=== PATIENT | male | born 1955 | race Caucasian/White ===

== ENCOUNTER 2018-03-26 07:47 | Inpatient (IN) | payer OTHER ==
[2018-03-19 13:40] VITALS: BP 105/71
[~2018-03-26] VITALS: Ht 165.1 cm; Wt 77.9 kg
[~2018-03-26 07:47] MED LIST: BUPIVACAINE/PF 0.5% ONE; BUPIVACAINE/PF-EPI 0.25% 1:200K ONE; CETI10TA24 PO; INDOCYANINE GREEN 25 MG VIAL ONE; LISI-170 PO; SIMV20TA3 PO; SULF1TAB24 PO; TAMS0.4C2 PO
[2018-03-26] MEDS ORDERED: LACTATED RINGERS 1,000 ML IV SCH (08:16)
[2018-03-26] MEDS ORDERED: ACETAMINOPHEN 500 MG TABLET PO ONE (08:30)
[2018-03-26] MEDS ORDERED: METOCLOPRAMIDE 10MG TABLET PO ONE (08:30)
[2018-03-26] MEDS ORDERED: LIDOCAINE-MPF 1%, 2ML INFIL ONE (08:30)
[2018-03-26] MEDS ORDERED: FAMOTIDINE 20 MG TABLET PO ONE (08:30)
[2018-03-26] MEDS ORDERED: GABAPENTIN 300 MG CAPSULE PO ONE (08:30)
[2018-03-26] MEDS ORDERED: NEOMYCIN PO (08:32)
[2018-03-26] MEDS ORDERED: METRONIDAZOLE PO (08:32)
[2018-03-26] MEDS ORDERED: SCOPOLAMINE PATCH, 1.5MG PATCH.TD72 TD ONE ×2 (08:51→09:00)
[2018-03-26 09:23] LABS: ALANINE AMINOTRANSFERASE 76 U/L (12-78); ANION GAP 6 mmol/L (5-15); CALCIUM 8.9 mg/dL (8.5-10.1); CHLORIDE 104 mmol/L (98-107); CREATININE 0.96 mg/dL (0.7-1.3)
[2018-03-26 09:26] LABS: ALKALINE PHOSPHATASE 107 U/L (45-117); BILIRUBIN,TOTAL 0.3 mg/dL (0.2-1.0); TOTAL PROTEIN 7.7 g/dL (6.4-8.2)
[2018-03-26] MEDS ORDERED: FENTANYL PF 100 MCG/2ML ONE (09:35)
[2018-03-26] MEDS ORDERED: MIDAZOLAM 1 MG/ML, 2ML ONE (09:36)
[2018-03-26] MEDS ORDERED: GLYCOPYRROLATE 0.2MG/1ML, 5ML ONE (10:38)
[2018-03-26] MEDS ORDERED: CEFOTETAN 2 GM ONE (10:38)
[2018-03-26] MEDS ORDERED: DEXAMETHASONE 4 MG/ML, 1ML ONE (10:38)
[2018-03-26] MEDS ORDERED: NEOSTIGMINE 1 MG/ML, 10ML ONE (10:38)
[2018-03-26] MEDS ORDERED: SUCCINYLCHOLINE 20 MG/ML, 10ML ONE (10:38)
[2018-03-26] MEDS ORDERED: ONDANSETRON 2MG/ML, 2ML ONE (10:38)
[2018-03-26] MEDS ORDERED: PHENYLEPHRINE 10 MG/ML ONE (10:38)
[2018-03-26] MEDS ORDERED: ROCURONIUM 10 MG/ML,10ML ONE (10:38)
[2018-03-26] MEDS ORDERED: PROPOFOL 10 MG/ML, 20ML ONE (10:38)
[2018-03-26] MEDS ORDERED: MEPERIDINE/PF 25MG/0.5ML IVPush PRN (11:30)
[2018-03-26] MEDS ORDERED: ALBUTEROL SULFATE 2.5 MG/3 ML NPPB PRN (11:30)
[2018-03-26] MEDS ORDERED: FENTANYL PF 100 MCG/2ML IV PRN (11:30)
[2018-03-26] MEDS ORDERED: OXYcodone 5 MG/5 ML ORAL.SOL UDC PO PRN (11:30)
[2018-03-26] MEDS ORDERED: PROMETHAZINE 25 MG/ML, 1ML IV PRN (11:30)
[2018-03-26] MEDS ORDERED: HYDROmorphone 1 MG/ML, 1ML IV PRN (11:30)
[2018-03-26] MEDS ORDERED: OXYcodone 5 MG/5 ML ORAL.SOL UDC ONE (12:53)
[2018-03-26] MEDS ORDERED: SCOPOLAMINE PATCH, 1.5MG PATCH.TD72 TD PRN (14:00)
[2018-03-26] MEDS ORDERED: HYDROmorphone 1 MG/ML, 1ML IVPush PRN (14:00)
[2018-03-26] MEDS ORDERED: DIPHENHYDRAMINE 50 MG/ML, 1ML IVPush PRN (14:00)
[2018-03-26] MEDS ORDERED: ONDANSETRON 2MG/ML, 2ML IV PRN (14:00)
[2018-03-26] MEDS ORDERED: LORazepam 2 MG/ML, 1ML IVPush PRN (14:00)
[2018-03-26] MEDS ORDERED: CALCIUM CARBONATE 500 MG TAB.CHEW PO PRN (14:00)
[2018-03-26] MEDS ORDERED: OXYcodone IR 5MG TABLET PO PRN (14:00)
[2018-03-26] MEDS ORDERED: TRAZODONE 50MG TABLET PO PRN (14:00)
[2018-03-26] MEDS ORDERED: ACETAMINOPHEN 100 ML IVPB PRN (14:00)
[2018-03-26] MEDS ORDERED: DIPHENHYDRAMINE 25 MG CAPSULE PO PRN (14:00)
[2018-03-26] MEDS ORDERED: DEXAMETHASONE 4 MG/ML, 1ML IVPush PRN (14:00)
[2018-03-26] MEDS ORDERED: LORazepam 1MG TABLET PO PRN (14:00)
[2018-03-26] MEDS ORDERED: D5%-0.45NACL+KCL 20MEQ 1,000 ML IV SCH (14:00)
[2018-03-26 14:15] VITALS: BP 102/57
[2018-03-26] MEDS: D5%-0.45NACL+KCL 20MEQ 1,000 ML IV SCH (14:48)
[2018-03-26] MEDS: ACETAMINOPHEN 500 MG TABLET PO SCH ×2 (16:13→22:10)
[2018-03-26] MEDS: IBUPROFEN 800 MG TABLET PO SCH ×2 (16:13→20:37)
[2018-03-26 20:00] VITALS: BP 104/66
[2018-03-26] MEDS: SULFAMETH./TRIMETHOPRIM DS 800MG/160MG TABLET PO SCH (20:37)
[2018-03-26] MEDS: SIMVASTATIN 20 MG TABLET PO SCH (20:38)
[2018-03-27 00:35] VITALS: BP 100/57
[2018-03-27 03:42] LABS: BASOPHILS # (AUTO) 0.03 x10^3/uL (0-0.1); BASOPHILS % (AUTO) 0 % (0-1); EOSINOPHILS % (AUTO) 0 % (1-7); LYMPHOCYTES # (AUTO) 1.39 x10^3/uL (1-3.4); LYMPHOCYTES % (AUTO) 11 % (22-44); MD NO; MEAN CORPUSCULAR HEMOGLOBIN 31.5 pg (27.5-34.5); MEAN CORPUSCULAR HGB CONC 34.4 g/dL (33.2-36.2); MEAN CORPUSCULAR VOLUME 91.7 fL (81-97); MEAN PLATELET VOLUME 7.5 fL (7.4-10.4); MONOCYTES # (AUTO) 1.02 x10^3/uL (0.2-0.8); MONOCYTES % (AUTO) 8 % (2-9); NEUTROPHILS # (AUTO) 9.86 x10^3/uL (1.8-6.8); NEUTROPHILS % (AUTO) 80 % (42-75); PLATELET COUNT 282 x10^3/uL (130-400); RED BLOOD COUNT 3.94 x10^6/uL (4.38-5.82); RED CELL DISTRIBUTION WIDTH 13.1 % (9.4-14.8)
[2018-03-27 03:43] LABS: ANION GAP 8 mmol/L (5-15); CALCIUM 8.5 mg/dL (8.5-10.1); CHLORIDE 105 mmol/L (98-107); CREATININE 1.23 mg/dL (0.7-1.3)
[2018-03-27 04:00] VITALS: BP 91/52
[2018-03-27] MEDS: ACETAMINOPHEN 500 MG TABLET PO SCH ×4 (04:06→22:50)
[2018-03-27] MEDS: D5%-0.45NACL+KCL 20MEQ 1,000 ML IV SCH ×2 (05:18→19:36)
[2018-03-27 07:56] VITALS: BP 94/55
[2018-03-27] MEDS: IBUPROFEN 800 MG TABLET PO SCH ×3 (08:37→21:21)
[2018-03-27] MEDS: SULFAMETH./TRIMETHOPRIM DS 800MG/160MG TABLET PO SCH ×2 (08:37→21:21)
[2018-03-27] MEDS: CETIRIZINE 10 MG TABLET PO SCH (08:37)
[2018-03-27] MEDS: TAMSULOSIN 0.4 MG CAP.ER.24H PO SCH (08:37)
[2018-03-27] MEDS: ENOXAPARIN 40 MG/0.4 ML SQ SCH (11:03)
[2018-03-27 13:41] VITALS: BP 100/63
[2018-03-27] MEDS ORDERED: D5%-0.45NACL+KCL 20MEQ 1,000 ML IV SCH (14:00)
[2018-03-27 19:56] VITALS: BP 104/64
[2018-03-27] MEDS: SIMVASTATIN 20 MG TABLET PO SCH (21:21)
[2018-03-28 02:27] VITALS: BP 114/71
[2018-03-28] MEDS: ACETAMINOPHEN 500 MG TABLET PO SCH ×2 (04:48→10:24)
[2018-03-28 05:32] LABS: BASOPHILS # (AUTO) 0.03 x10^3/uL (0-0.1); BASOPHILS % (AUTO) 0 % (0-1); EOSINOPHILS # (AUTO) 0.11 x10^3/uL (0-0.4); EOSINOPHILS % (AUTO) 2 % (1-7); LYMPHOCYTES # (AUTO) 1.67 x10^3/uL (1-3.4); LYMPHOCYTES % (AUTO) 23 % (22-44); MD NO; MEAN CORPUSCULAR HEMOGLOBIN 30.8 pg (27.5-34.5); MEAN CORPUSCULAR HGB CONC 33.9 g/dL (33.2-36.2); MEAN CORPUSCULAR VOLUME 90.8 fL (81-97); MEAN PLATELET VOLUME 7.6 fL (7.4-10.4); MONOCYTES # (AUTO) 0.65 x10^3/uL (0.2-0.8); MONOCYTES % (AUTO) 9 % (2-9); NEUTROPHILS % (AUTO) 66 % (42-75); PLATELET COUNT 229 x10^3/uL (130-400); RED BLOOD COUNT 3.78 x10^6/uL (4.38-5.82); RED CELL DISTRIBUTION WIDTH 13.8 % (9.4-14.8)
[2018-03-28 05:37] LABS: ANION GAP 9 mmol/L (5-15); CALCIUM 8.7 mg/dL (8.5-10.1); CHLORIDE 109 mmol/L (98-107); CREATININE 1.16 mg/dL (0.7-1.3)
[2018-03-28 07:06] VITALS: BP 108/68
[2018-03-28] MEDS: D5%-0.45NACL+KCL 20MEQ 1,000 ML IV SCH (07:34)
[2018-03-28] MEDS: TAMSULOSIN 0.4 MG CAP.ER.24H PO SCH (08:15)
[2018-03-28] MEDS: SULFAMETH./TRIMETHOPRIM DS 800MG/160MG TABLET PO SCH (08:16)
[2018-03-28] MEDS: CETIRIZINE 10 MG TABLET PO SCH (08:16)
[2018-03-28] MEDS: IBUPROFEN 800 MG TABLET PO SCH (08:16)
[2018-03-28] MEDS: ENOXAPARIN 40 MG/0.4 ML SQ SCH (10:24)
[2018-03-28 10:39] VITALS: BP 113/71
[2018-03-28] MEDS ORDERED: ENOX40SY4 SQ (10:40)
[2018-03-28] MEDS ORDERED: OXYC-302 PO (10:40)
== END 2018-03-28 11:18 | disposition home or self-care (01) | DRG 376 ==
LOC: ORIP 07:47 → 4NOR 13:30 → DCLOUNGE 03-28 10:58
PROVIDERS: ADMIT Surgery; ATTEND Surgery
PROC: 8E0W4CZ Robotic Assisted Procedure of Trunk Region, Percutaneous Endoscopic Approach (ICD-10-PCS; 2018-03-26)
PROC: 0DBN4ZX Excision of Sigmoid Colon, Percutaneous Endoscopic Approach, Diagnostic (ICD-10-PCS; principal; 2018-03-26 11:00)
DX: C18.7 Malignant neoplasm of sigmoid colon (principal); E78.00 Pure hypercholesterolemia, unspecified; I10 Essential (primary) hypertension; Z90.49 Acquired absence of other specified parts of digestive tract; Z80.42 Family history of malignant neoplasm of prostate; Z80.3 Family history of malignant neoplasm of breast; Z83.2 Family history of diseases of the blood and blood-forming organs and certain disorders involving the immune mechanism
CPT/HCPCS: 36415; J3490; S0074; 80048; 80053; 85025; 86850; 86900; 88309; 93005; J1100; J1650; J2250; J2405; J2704; J2710; J3010; J0330; J2370; J3480; J7120

== ENCOUNTER 2018-04-17 05:59 | Day surgery (SDC) | payer OTHER ==
[~2018-04-17] VITALS: Ht 162.6 cm; Wt 72.0 kg
[~2018-04-17 05:59] MED LIST changes: -BUPIVACAINE/PF 0.5% ONE; -BUPIVACAINE/PF-EPI 0.25% 1:200K ONE; +ENOX40SY4 SQ; -INDOCYANINE GREEN 25 MG VIAL ONE; +METRONIDAZOLE PO; +NEOMYCIN PO; +OXYC-302 PO
[2018-04-17] MEDS ORDERED: BUPIVACAINE/PF-EPI 0.5% 1:200K ONE (06:11)
[2018-04-17] MEDS ORDERED: PROTAMINE SULFATE 10 MG/ML, 5ML ONE (06:11)
[2018-04-17] MEDS ORDERED: HEPARIN 1,000 UNITS/ML, 10ML ONE (06:11)
[2018-04-17 06:22] VITALS: BP 128/82
[2018-04-17] MEDS ORDERED: EPHEDRINE 50 MG/ML, 1ML ONE (06:36)
[2018-04-17] MEDS ORDERED: SODIUM CHLORIDE 0.9% PF 10ML ONE (06:37)
[2018-04-17] MEDS ORDERED: LIDOCAINE-MPF 2% ,5ML ONE (06:37)
[2018-04-17] MEDS ORDERED: PROPOFOL 10 MG/ML, 20ML ONE (06:37)
[2018-04-17] MEDS ORDERED: PHENYLEPHRINE 10 MG/ML ONE (06:37)
[2018-04-17] MEDS ORDERED: NEOSTIGMINE 1 MG/ML, 10ML ONE (06:37)
[2018-04-17] MEDS ORDERED: LIDOCAINE JELLY 2%, 30GM ONE (06:38)
[2018-04-17] MEDS ORDERED: LACTATED RINGERS 1,000 ML IV SCH (06:40)
[2018-04-17] MEDS ORDERED: METOCLOPRAMIDE 5 MG/ML, 2ML ONE (07:06)
[2018-04-17] MEDS ORDERED: DEXAMETHASONE 4 MG/ML, 1ML ONE (07:06)
[2018-04-17] MEDS ORDERED: FENTANYL PF 100 MCG/2ML ONE (07:06)
[2018-04-17] MEDS ORDERED: MIDAZOLAM 1 MG/ML, 2ML ONE (07:06)
[2018-04-17] MEDS ORDERED: ONDANSETRON 2MG/ML, 2ML ONE ×2 (07:06)
[2018-04-17] MEDS ORDERED: BUPIVACAINE/PF-EPI 0.5% 1:200K INFIL ONE (07:31)
[2018-04-17] MEDS ORDERED: OXYcodone 5 MG/5 ML ORAL.SOL UDC ONE (07:56)
[2018-04-17] MEDS ORDERED: OXYcodone 5 MG/5 ML ORAL.SOL UDC PO PRN (08:00)
[2018-04-17] MEDS ORDERED: MIDAZOLAM 1 MG/ML, 2ML IV PRN (08:00)
[2018-04-17] MEDS ORDERED: HYDROmorphone 2 MG/ML, 1ML IV PRN (08:00)
[2018-04-17] MEDS ORDERED: MEPERIDINE/PF 25MG/0.5ML IVPush PRN (08:00)
[2018-04-17] MEDS ORDERED: FENTANYL PF 100 MCG/2ML IV PRN (08:00)
[2018-04-17] MEDS ORDERED: ONDANSETRON 2MG/ML, 2ML IVPush PRN (08:00)
[2018-04-17] MEDS ORDERED: LABETALOL 5MG/ML, 20ML IV PRN (08:00)
== END 2018-04-17 09:10 | disposition home or self-care (01) ==
LOC: OUT 05:59
PROVIDERS: ATTEND Colon & Rectal Surgery
DX: Z45.2 Encounter for adjustment and management of vascular access device (principal); C18.9 Malignant neoplasm of colon, unspecified; I87.2 Venous insufficiency (chronic) (peripheral); I10 Essential (primary) hypertension; Z98.890 Other specified postprocedural states
CPT/HCPCS: 36561; 77001; C1788; J1100; J1644; J2250; J2370; J2405; J2704; J2765; J3010; J3490; J7120; J2710; J2720

== ENCOUNTER → 2018-05-07 | Outpatient (CLI) | payer OTHER | END | disposition home or self-care (01) | LOC: RAD 13:29 | PROVIDERS: ATTEND Internal Medicine Hematology & Oncology | DX: C18.7 Malignant neoplasm of sigmoid colon (principal) | CPT/HCPCS: 36598; 76000; J1642 ==

== ENCOUNTER → 2018-08-20 | Outpatient (CLI) | payer OTHER | END | disposition home or self-care (01) | LOC: RAD 12:17 | PROVIDERS: ATTEND Colon & Rectal Surgery | DX: R07.9 Chest pain, unspecified (principal); Z95.828 Presence of other vascular implants and grafts | CPT/HCPCS: 71046 ==

== ENCOUNTER 2018-08-22 06:53 | Day surgery (SDC) | payer OTHER ==
[~2018-08-22] VITALS: Ht 165.1 cm; Wt 74.6 kg
[~2018-08-22 06:53] MED LIST changes: +BUPIVACAINE/PF-EPI 0.5% 1:200K ONE; +HEPARIN 1,000 UNITS/ML, 10ML ONE
[2018-08-22 07:18] VITALS: BP 128/77
[2018-08-22] MEDS ORDERED: LACTATED RINGERS 1,000 ML IV SCH (07:19)
[2018-08-22 08:54] LABS: ALANINE AMINOTRANSFERASE 34 U/L (12-78); ALBUMIN 3.3 g/dL (3.4-5.0); ANION GAP 4 mmol/L (5-15); CALCIUM 8.8 mg/dL (8.5-10.1); CHLORIDE 111 mmol/L (98-107)
[2018-08-22 08:57] LABS: ALKALINE PHOSPHATASE 86 U/L (45-117); BILIRUBIN,TOTAL 0.3 mg/dL (0.2-1.0); TOTAL PROTEIN 6.6 g/dL (6.4-8.2)
[2018-08-22] MEDS ORDERED: FENTANYL PF 100 MCG/2ML ONE (09:05)
[2018-08-22] MEDS ORDERED: MIDAZOLAM 1 MG/ML, 2ML ONE (09:05)
[2018-08-22] MEDS ORDERED: PROPOFOL 50 ML ONE (09:09)
[2018-08-22] MEDS ORDERED: CEFAZOLIN 1,000 MG ONE (09:35)
[2018-08-22] MEDS ORDERED: ONDANSETRON 2MG/ML, 2ML ONE (09:35)
[2018-08-22] MEDS ORDERED: DEXAMETHASONE 4 MG/ML, 5ML ONE (09:35)
[2018-08-22] MEDS ORDERED: ROCURONIUM 10 MG/ML,10ML ONE (09:35)
[2018-08-22] MEDS ORDERED: KETOROLAC 30 MG/1 ML ONE (09:35)
[2018-08-22] MEDS ORDERED: SUCCINYLCHOLINE 20 MG/ML, 10ML ONE (09:35)
[2018-08-22] MEDS ORDERED: PROPOFOL 10 MG/ML, 50ML ONE (09:35)
[2018-08-22] MEDS ORDERED: BUPIVACAINE/PF-EPI 0.5% 1:200K INFIL ONE (09:54)
[2018-08-22] MEDS ORDERED: ACETAMINOPHEN 325 MG TABLET PO PRN (10:00)
[2018-08-22] MEDS ORDERED: MEPERIDINE/PF 25MG/0.5ML IVPush PRN (10:00)
[2018-08-22] MEDS ORDERED: OXYcodone 5 MG/5 ML ORAL.SOL UDC PO PRN (10:00)
[2018-08-22] MEDS ORDERED: ALBUTEROL/IPRATROPIUM 2.5MG/0.5MG, 3 ML NPPB PRN (10:00)
[2018-08-22] MEDS ORDERED: hydrALAzine 20 MG/ML, 1ML IV PRN (10:00)
[2018-08-22] MEDS ORDERED: METOPROLOL 1 MG/ML, 5ML IV PRN (10:00)
[2018-08-22] MEDS ORDERED: ONDANSETRON 2MG/ML, 2ML IV PRN (10:00)
[2018-08-22] MEDS ORDERED: PROMETHAZINE 25 MG/ML, 1ML IV PRN (10:00)
[2018-08-22] MEDS ORDERED: MIDAZOLAM 1 MG/ML, 2ML IV PRN (10:00)
[2018-08-22] MEDS ORDERED: FENTANYL PF 100 MCG/2ML IV PRN (10:00)
== END 2018-08-22 12:15 | disposition home or self-care (01) ==
LOC: OUT 06:53
PROVIDERS: ATTEND Colon & Rectal Surgery
DX: T82.598A Other mechanical complication of other cardiac and vascular devices and implants, initial encounter (principal); Y83.8 Other surgical procedures as the cause of abnormal reaction of the patient, or of later complication, without mention of misadventure at the time of the procedure; Y92.89 Other specified places as the place of occurrence of the external cause; N40.0 Benign prostatic hyperplasia without lower urinary tract symptoms; E78.00 Pure hypercholesterolemia, unspecified; I10 Essential (primary) hypertension; Z85.038 Personal history of other malignant neoplasm of large intestine; Z98.890 Other specified postprocedural states; Z98.41 Cataract extraction status, right eye; Z72.89 Other problems related to lifestyle
CPT/HCPCS: 36415; 36576; 77001; 80053; 93005; C1788; J0330; J0690; J1100; J1644; J1885; J2250; J2405; J2704; J3010; J7120

== ENCOUNTER 2019-03-02 11:46 | Outpatient (CLI) | payer OTHER ==
[~2019-03-02 11:46] MED LIST changes: -BUPIVACAINE/PF-EPI 0.5% 1:200K ONE; -HEPARIN 1,000 UNITS/ML, 10ML ONE
[2019-03-02] MEDS ORDERED: OMNIPAQUE 350 MG/ML, 75ML BOTTLE ONE (12:50)
[2019-04-28] MEDS ORDERED: MULT-658 PO (13:04)
[2019-04-28] MEDS ORDERED: ROSU10TA2 PO (13:04)
== END 2019-03-02 23:59 | disposition home or self-care (01) ==
LOC: CFH 11:46
PROVIDERS: ATTEND Internal Medicine Hematology & Oncology
DX: C18.7 Malignant neoplasm of sigmoid colon (principal); R59.0 Localized enlarged lymph nodes
CPT/HCPCS: 71260; Q9967

== ENCOUNTER → 2019-11-02 | Outpatient (CLI) | payer OTHER ==
[~2019-11-02] MED LIST changes: -CETI10TA24 PO; +CETI10TA26 PO; +MULT-658 PO; +OMNIPAQUE 350 MG/ML, 100ML BOTTLE ONE; +ROSU10TA2 PO; +SIMV20TA19 PO; -SIMV20TA3 PO
== END | disposition home or self-care (01) ==
LOC: CFH 10:58
PROVIDERS: ATTEND Internal Medicine Hematology & Oncology
DX: C18.7 Malignant neoplasm of sigmoid colon (principal); R59.0 Localized enlarged lymph nodes
CPT/HCPCS: 71260; 74177; Q9967

== ENCOUNTER → 2020-07-19 | Outpatient (CLI) | payer OTHER ==
[~2020-07-19] MED LIST changes: -CETI10TA26 PO; +CETI10TA76 PO
== END | disposition home or self-care (01) ==
LOC: CFH 14:13
PROVIDERS: ATTEND Internal Medicine Hematology & Oncology
DX: C18.7 Malignant neoplasm of sigmoid colon (principal); K40.90 Unilateral inguinal hernia, without obstruction or gangrene, not specified as recurrent; N40.0 Benign prostatic hyperplasia without lower urinary tract symptoms; R59.0 Localized enlarged lymph nodes
CPT/HCPCS: 71260; 74177; 82565; Q9967